=== PATIENT | female | born 1935 | race Caucasian/White ===

== ENCOUNTER 2020-05-16 16:21 | Inpatient (IN) | payer MEDICARE ==
[2020-05-16] MEDS: Amlodipine 5 MG TAB PO SCH (21:04)
[2020-05-16] MEDS: Carbidopa/Levodopa 25-100 mg Tablet PO SCH (21:04)
[2020-05-16] MEDS: Pramipexole Di-HCl 0.25 MG TAB PO SCH (21:05)
[2020-05-16] MEDS: Gabapentin 300 MG CAP PO SCH (21:05)
[2020-05-16] MEDS: Senokot S 8.6-50 MG TAB PO PRN (22:00)
[2020-05-16] MEDS: Naproxen 500 MG TAB PO PRN (22:00)
[2020-05-17] MEDS: Naproxen 500 MG TAB PO PRN ×2 (05:01→15:21)
[2020-05-17 05:32] LABS: #Basophils 0.1 thou/uL (0.0-0.2); #Eosinphils 0.1 thou/uL (0.0-0.7); #Monocytes 0.6 thou/uL (0.11-0.59); #Neutrophils 6.6 thou/uL (1.40-6.50); %Eosinophils 1.4 % (0.0-10.0); %Lymphocytes 11.7 % (21.0-51.0); %Monocytes 7.4 % (0.0-10.0); %Neutrophils 78.4 % (42.0-75.0); Hemoglobin 12.6 g/dL (12.0-16.0); Mean Corpuscular HGB CONC 33.6 g/dL (32.0-36.0); Mean Corpuscular Hemoglobin 30.1 pg (27.0-31.0); Mean Corpuscular Volume 89.7 fL (78.0-98.0); Mean Platelet Volume 5.5 fL (7.4-10.4); Platelet Count 426 thou/uL (130-400); RBC Distribution Width 11.9 % (11.5-14.5); Red Blood Cell (RBC) Count 4.19 mill/uL (4.20-5.40); White Blood Cell (WBC) Count 8.5 thou/uL (4.8-10.8)
[2020-05-17 05:37] LABS: ALT (SGPT) 9 U/L (8-55); AST (SGOT) 24 U/L (5-34); Albumin 3.6 g/dL (3.4-4.8); Alkaline Phosphatase 158 U/L (40-110); Anion Gap 13 mmol/L (10-20); BUN (Urea Nitrogen) 10 mg/dL (9.8-20.1); Calc. Creatinine Clearance 57 mL/min (70-130); Calcium 8.7 mg/dL (7.8-10.44); Carbon Dioxide 27 mmol/L (23-31); Chloride 96 mmol/L (98-107); Globulin 2.5 g/dL (2.4-3.5); Glucose 108 mg/dL (83-110); Potassium 3.4 mmol/L (3.5-5.1); Protein, Total 6.1 g/dL (5.8-8.1); Sodium 133 mmol/L (136-145)
[2020-05-17] MEDS: Pramipexole Di-HCl 0.25 MG TAB PO SCH ×2 (08:10→21:05)
[2020-05-17] MEDS: Cholecalciferol 1,000 UNITS (25 MCG) TAB PO SCH (08:10)
[2020-05-17] MEDS: Carbidopa/Levodopa 25-100 mg Tablet PO SCH ×4 (08:11→21:04)
[2020-05-17] MEDS: Gabapentin 300 MG CAP PO SCH ×2 (08:12→21:04)
[2020-05-17] MEDS: Atorvastatin Calcium 10 MG TAB PO SCH (08:14)
[2020-05-17] MEDS: Multivitamin W/ Minerals 1 TAB PO SCH (08:14)
[2020-05-17] MEDS ORDERED: Lactinex Tablet PO SCH (09:00)
[2020-05-17] MEDS ORDERED: Floranex Packet PO SCH (11:15)
[2020-05-17] MEDS: Floranex Packet PO SCH (12:20)
[2020-05-17] MEDS: Lidocaine 5% Patch TD SCH (12:22)
[2020-05-17] MEDS: Amlodipine 5 MG TAB PO SCH (21:04)
[2020-05-17] MEDS: Senokot S 8.6-50 MG TAB PO PRN (21:10)
[2020-05-18] MEDS: LIDOCAINE Patch Removal TOP SCH (00:21)
[2020-05-18] MEDS: Atorvastatin Calcium 10 MG TAB PO SCH (08:33)
[2020-05-18] MEDS: Floranex Packet PO SCH (08:33)
[2020-05-18] MEDS: Naproxen 500 MG TAB PO PRN ×3 (08:34→21:17)
[2020-05-18] MEDS: Senokot S 8.6-50 MG TAB PO PRN (08:34)
[2020-05-18] MEDS: Cholecalciferol 1,000 UNITS (25 MCG) TAB PO SCH (08:36)
[2020-05-18] MEDS: Gabapentin 300 MG CAP PO SCH ×2 (08:37→21:19)
[2020-05-18] MEDS: Enoxaparin Sodium 30 MG/0.3 ML SYRINGE SC SCH (08:37)
[2020-05-18] MEDS: Multivitamin W/ Minerals 1 TAB PO SCH (08:37)
[2020-05-18] MEDS: Carbidopa/Levodopa 25-100 mg Tablet PO SCH ×4 (08:39→21:20)
[2020-05-18] MEDS: Pramipexole Di-HCl 0.25 MG TAB PO SCH ×2 (08:40→21:17)
[2020-05-18] MEDS: Lidocaine 5% Patch TD SCH (12:45)
[2020-05-18] MEDS ORDERED: Bisacodyl 10 MG SUPP PR PRN (14:45)
[2020-05-18] MEDS: Amlodipine 5 MG TAB PO SCH (21:17)
[2020-05-19] MEDS: LIDOCAINE Patch Removal TOP SCH ×2 (00:36→21:33)
[2020-05-19] MEDS: Pramipexole Di-HCl 0.25 MG TAB PO SCH ×2 (09:10→21:31)
[2020-05-19] MEDS: Floranex Packet PO SCH (09:10)
[2020-05-19] MEDS: Multivitamin W/ Minerals 1 TAB PO SCH (09:11)
[2020-05-19] MEDS: Gabapentin 300 MG CAP PO SCH ×2 (09:11→21:32)
[2020-05-19] MEDS: Naproxen 500 MG TAB PO PRN ×2 (09:13→21:30)
[2020-05-19] MEDS: Carbidopa/Levodopa 25-100 mg Tablet PO SCH ×4 (09:14→21:32)
[2020-05-19] MEDS: Atorvastatin Calcium 10 MG TAB PO SCH (09:14)
[2020-05-19] MEDS: Cholecalciferol 1,000 UNITS (25 MCG) TAB PO SCH (09:15)
[2020-05-19] MEDS: Enoxaparin Sodium 30 MG/0.3 ML SYRINGE SC SCH (09:16)
[2020-05-19] MEDS: Lidocaine 5% Patch TD SCH (12:48)
[2020-05-19] MEDS: Amlodipine 5 MG TAB PO SCH (21:32)
[2020-05-20] MEDS: Naproxen 500 MG TAB PO PRN ×2 (05:43→21:58)
[2020-05-20 06:12] LABS: Anion Gap 14 mmol/L (10-20); BUN (Urea Nitrogen) 13 mg/dL (9.8-20.1); Calc. Creatinine Clearance 52 mL/min (70-130); Calcium 8.6 mg/dL (7.8-10.44); Carbon Dioxide 28 mmol/L (23-31); Chloride 93 mmol/L (98-107); Glucose 103 mg/dL (83-110); Sodium 131 mmol/L (136-145)
[2020-05-20] MEDS: Floranex Packet PO SCH (08:53)
[2020-05-20] MEDS: Enoxaparin Sodium 30 MG/0.3 ML SYRINGE SC SCH (08:54)
[2020-05-20] MEDS: Multivitamin W/ Minerals 1 TAB PO SCH (08:54)
[2020-05-20] MEDS: Carbidopa/Levodopa 25-100 mg Tablet PO SCH ×4 (08:54→21:58)
[2020-05-20] MEDS: Gabapentin 300 MG CAP PO SCH ×2 (08:55→21:57)
[2020-05-20] MEDS: Pramipexole Di-HCl 0.25 MG TAB PO SCH ×2 (08:55→21:58)
[2020-05-20] MEDS: Atorvastatin Calcium 10 MG TAB PO SCH (08:55)
[2020-05-20] MEDS: Cholecalciferol 1,000 UNITS (25 MCG) TAB PO SCH (08:55)
[2020-05-20] MEDS: Lidocaine 5% Patch TD SCH (08:56)
[2020-05-20] MEDS ORDERED: TYLENOL 650 MG PO PRN (19:35)
[2020-05-20] MEDS: Amlodipine 5 MG TAB PO SCH (21:58)
[2020-05-20] MEDS: LIDOCAINE Patch Removal TOP SCH (21:59)
[2020-05-21] MEDS ORDERED: Acetaminophen 325 MG TAB PO PRN (08:32)
[2020-05-21] MEDS: Floranex Packet PO SCH (09:04)
[2020-05-21] MEDS: Enoxaparin Sodium 30 MG/0.3 ML SYRINGE SC SCH (09:04)
[2020-05-21] MEDS: Multivitamin W/ Minerals 1 TAB PO SCH (09:05)
[2020-05-21] MEDS: Carbidopa/Levodopa 25-100 mg Tablet PO SCH ×4 (09:05→20:51)
[2020-05-21] MEDS: Gabapentin 300 MG CAP PO SCH ×2 (09:05→20:49)
[2020-05-21] MEDS: Pramipexole Di-HCl 0.25 MG TAB PO SCH ×2 (09:05→20:49)
[2020-05-21] MEDS: Cholecalciferol 1,000 UNITS (25 MCG) TAB PO SCH (09:06)
[2020-05-21] MEDS: Atorvastatin Calcium 10 MG TAB PO SCH (09:06)
[2020-05-21] MEDS: Lidocaine 5% Patch TD SCH (09:09)
[2020-05-21] MEDS: Acetaminophen 325 MG TAB PO PRN (15:09)
[2020-05-21] MEDS: Amlodipine 5 MG TAB PO SCH (20:51)
[2020-05-21] MEDS: LIDOCAINE Patch Removal TOP SCH (21:00)
[2020-05-22] MEDS: Naproxen 500 MG TAB PO PRN ×3 (00:02→23:26)
[2020-05-22 08:04] LABS: Anion Gap 13 mmol/L (10-20); BUN (Urea Nitrogen) 13 mg/dL (9.8-20.1); Calc. Creatinine Clearance 53 mL/min (70-130); Calcium 8.9 mg/dL (7.8-10.44); Carbon Dioxide 27 mmol/L (23-31); Chloride 96 mmol/L (98-107); Glucose 101 mg/dL (83-110); Potassium 4.3 mmol/L (3.5-5.1); Sodium 132 mmol/L (136-145)
[2020-05-22] MEDS: Floranex Packet PO SCH (08:51)
[2020-05-22] MEDS: Atorvastatin Calcium 10 MG TAB PO SCH (08:51)
[2020-05-22] MEDS: Carbidopa/Levodopa 25-100 mg Tablet PO SCH ×4 (08:52→20:34)
[2020-05-22] MEDS: Cholecalciferol 1,000 UNITS (25 MCG) TAB PO SCH (08:54)
[2020-05-22] MEDS: Enoxaparin Sodium 30 MG/0.3 ML SYRINGE SC SCH (08:54)
[2020-05-22] MEDS: Gabapentin 300 MG CAP PO SCH ×2 (08:54→20:34)
[2020-05-22] MEDS: Lidocaine 5% Patch TD SCH (08:55)
[2020-05-22] MEDS: Multivitamin W/ Minerals 1 TAB PO SCH (08:56)
[2020-05-22] MEDS: Pramipexole Di-HCl 0.25 MG TAB PO SCH ×2 (08:56→20:34)
[2020-05-22] MEDS: Acetaminophen 325 MG TAB PO PRN (08:58)
[2020-05-22] MEDS: LIDOCAINE Patch Removal TOP SCH (20:35)
[2020-05-22] MEDS: Amlodipine 5 MG TAB PO SCH (20:35)
[2020-05-23] MEDS: Acetaminophen 325 MG TAB PO PRN ×2 (06:12→17:17)
[2020-05-23] MEDS: Atorvastatin Calcium 10 MG TAB PO SCH (09:15)
[2020-05-23] MEDS: Carbidopa/Levodopa 25-100 mg Tablet PO SCH ×4 (09:15→22:18)
[2020-05-23] MEDS: Floranex Packet PO SCH (09:15)
[2020-05-23] MEDS: Enoxaparin Sodium 30 MG/0.3 ML SYRINGE SC SCH (09:16)
[2020-05-23] MEDS: Cholecalciferol 1,000 UNITS (25 MCG) TAB PO SCH (09:16)
[2020-05-23] MEDS: Gabapentin 300 MG CAP PO SCH ×2 (09:16→22:18)
[2020-05-23] MEDS: Pramipexole Di-HCl 0.25 MG TAB PO SCH ×2 (09:18→22:17)
[2020-05-23] MEDS: Naproxen 500 MG TAB PO PRN (09:18)
[2020-05-23] MEDS: Lidocaine 5% Patch TD SCH (09:18)
[2020-05-23] MEDS: Multivitamin W/ Minerals 1 TAB PO SCH (09:18)
[2020-05-23] MEDS: Amlodipine 5 MG TAB PO SCH (22:17)
[2020-05-23] MEDS: LIDOCAINE Patch Removal TOP SCH (22:19)
[2020-05-24] MEDS: Lidocaine 5% Patch TD SCH (08:50)
[2020-05-24] MEDS: Enoxaparin Sodium 30 MG/0.3 ML SYRINGE SC SCH (08:50)
[2020-05-24] MEDS: Atorvastatin Calcium 10 MG TAB PO SCH (08:51)
[2020-05-24] MEDS: Pramipexole Di-HCl 0.25 MG TAB PO SCH ×2 (08:51→20:24)
[2020-05-24] MEDS: Cholecalciferol 1,000 UNITS (25 MCG) TAB PO SCH (08:51)
[2020-05-24] MEDS: Floranex Packet PO SCH (08:51)
[2020-05-24] MEDS: Carbidopa/Levodopa 25-100 mg Tablet PO SCH ×4 (08:52→20:24)
[2020-05-24] MEDS: Gabapentin 300 MG CAP PO SCH ×2 (08:53→20:22)
[2020-05-24] MEDS: Naproxen 500 MG TAB PO PRN (08:54)
[2020-05-24] MEDS: Multivitamin W/ Minerals 1 TAB PO SCH (08:54)
[2020-05-24] MEDS: Amlodipine 5 MG TAB PO SCH (20:24)
[2020-05-24] MEDS: LIDOCAINE Patch Removal TOP SCH (20:25)
[2020-05-24] MEDS: Acetaminophen 325 MG TAB PO PRN (20:26)
[2020-05-25] MEDS: Floranex Packet PO SCH (08:53)
[2020-05-25] MEDS: Multivitamin W/ Minerals 1 TAB PO SCH (08:53)
[2020-05-25] MEDS: Cholecalciferol 1,000 UNITS (25 MCG) TAB PO SCH (08:55)
[2020-05-25] MEDS: Pramipexole Di-HCl 0.25 MG TAB PO SCH ×2 (08:56→21:28)
[2020-05-25] MEDS: Carbidopa/Levodopa 25-100 mg Tablet PO SCH ×4 (08:57→21:28)
[2020-05-25] MEDS: Atorvastatin Calcium 10 MG TAB PO SCH (08:58)
[2020-05-25] MEDS: Gabapentin 300 MG CAP PO SCH ×2 (08:58→21:26)
[2020-05-25] MEDS: Lidocaine 5% Patch TD SCH (08:59)
[2020-05-25] MEDS: Enoxaparin Sodium 30 MG/0.3 ML SYRINGE SC SCH (09:02)
[2020-05-25] MEDS: Amlodipine 5 MG TAB PO SCH (21:29)
[2020-05-25] MEDS: LIDOCAINE Patch Removal TOP SCH (21:30)
[2020-05-26] MEDS: Acetaminophen 325 MG TAB PO PRN ×2 (03:01→21:56)
[2020-05-26 05:21] LABS: #Basophils 0.1 thou/uL (0.0-0.2); #Eosinphils 0.1 thou/uL (0.0-0.7); #Lymphocytes 0.9 thou/uL (1.20-3.40); #Monocytes 0.4 thou/uL (0.11-0.59); #Neutrophils 3.1 thou/uL (1.40-6.50); %Basophils 2.5 % (0.0-1.0); %Eosinophils 2.1 % (0.0-10.0); %Lymphocytes 19.2 % (21.0-51.0); %Monocytes 8.4 % (0.0-10.0); %Neutrophils 67.8 % (42.0-75.0); Hemoglobin 12.5 g/dL (12.0-16.0); Mean Corpuscular HGB CONC 32.9 g/dL (32.0-36.0); Mean Corpuscular Hemoglobin 30.5 pg (27.0-31.0); Mean Corpuscular Volume 92.9 fL (78.0-98.0); Mean Platelet Volume 5.7 fL (7.4-10.4); Platelet Count 300 thou/uL (130-400); RBC Distribution Width 12.4 % (11.5-14.5); Red Blood Cell (RBC) Count 4.08 mill/uL (4.20-5.40); White Blood Cell (WBC) Count 4.5 thou/uL (4.8-10.8)
[2020-05-26 05:32] LABS: Anion Gap 13 mmol/L (10-20); BUN (Urea Nitrogen) 14 mg/dL (9.8-20.1); Calc. Creatinine Clearance 52 mL/min (70-130); Carbon Dioxide 29 mmol/L (23-31); Chloride 94 mmol/L (98-107); Potassium 3.7 mmol/L (3.5-5.1); Sodium 132 mmol/L (136-145)
[2020-05-26 05:33] LABS: Calcium 8.6 mg/dL (7.8-10.44); Glucose 102 mg/dL (83-110)
[2020-05-26 06:44] LABS: Bilirubin Negative (Negative); Blood, Urine Negative (Negative); Clarity Clear (Clear); Glucose, Urine (Dipstick) Negative (Negative); Ketone, Urine Negative (Negative); Leukocyte Negative (Negative); Nitrite Negative (Negative); Protein, Urine (Dipstick) Negative (Neg-Trace); Urobilinogen 0.2 mg/dL (Less than 2); pH, Urine 6.5 (5.0-9.0)
[2020-05-26 06:45] LABS: Urine Culture Reflex No No
[2020-05-26 06:50] LABS: Bacteria/HPF None Seen HPF (None Seen); RBC/HPF None Seen HPF (0-3); Squamous Epithelial 0-3 HPF (0-3); WBC/HPF 0-3 HPF (0-3)
[2020-05-26] MEDS: Enoxaparin Sodium 30 MG/0.3 ML SYRINGE SC SCH (09:29)
[2020-05-26] MEDS: Gabapentin 300 MG CAP PO SCH ×2 (09:30→21:56)
[2020-05-26] MEDS: Pramipexole Di-HCl 0.25 MG TAB PO SCH ×2 (09:30→21:55)
[2020-05-26] MEDS: Multivitamin W/ Minerals 1 TAB PO SCH (09:30)
[2020-05-26] MEDS: Cholecalciferol 1,000 UNITS (25 MCG) TAB PO SCH (09:32)
[2020-05-26] MEDS: Carbidopa/Levodopa 25-100 mg Tablet PO SCH ×4 (09:33→21:55)
[2020-05-26] MEDS: Atorvastatin Calcium 10 MG TAB PO SCH (09:33)
[2020-05-26] MEDS: Lidocaine 5% Patch TD SCH (09:34)
[2020-05-26] MEDS: Floranex Packet PO SCH (09:36)
[2020-05-26] MEDS: Amlodipine 5 MG TAB PO SCH (21:55)
[2020-05-26] MEDS: LIDOCAINE Patch Removal TOP SCH (21:59)
[2020-05-27] MEDS: Naproxen 500 MG TAB PO PRN ×3 (04:17→20:30)
[2020-05-27] MEDS: Lidocaine 5% Patch TD SCH (07:38)
[2020-05-27] MEDS: Floranex Packet PO SCH (07:39)
[2020-05-27] MEDS: Gabapentin 300 MG CAP PO SCH ×2 (07:39→20:28)
[2020-05-27] MEDS: Pramipexole Di-HCl 0.25 MG TAB PO SCH ×2 (07:40→20:29)
[2020-05-27] MEDS: Enoxaparin Sodium 30 MG/0.3 ML SYRINGE SC SCH (07:46)
[2020-05-27] MEDS: Carbidopa/Levodopa 25-100 mg Tablet PO SCH ×4 (09:08→20:28)
[2020-05-27] MEDS: Multivitamin W/ Minerals 1 TAB PO SCH (09:09)
[2020-05-27] MEDS: Atorvastatin Calcium 10 MG TAB PO SCH (09:09)
[2020-05-27] MEDS ORDERED: ALPRAZolam 0.25 MG TAB PO SCH (09:10)
[2020-05-27] MEDS: Cholecalciferol 1,000 UNITS (25 MCG) TAB PO SCH (09:11)
[2020-05-27] MEDS: Amlodipine 5 MG TAB PO SCH (20:30)
[2020-05-27] MEDS: Acetaminophen 325 MG TAB PO PRN (20:31)
[2020-05-27] MEDS: LIDOCAINE Patch Removal TOP SCH (20:48)
[2020-05-28] MEDS: Naproxen 500 MG TAB PO PRN (04:54)
[2020-05-28] MEDS: Acetaminophen 325 MG TAB PO PRN (04:55)
[2020-05-28] MEDS: Floranex Packet PO SCH (09:25)
[2020-05-28] MEDS: Atorvastatin Calcium 10 MG TAB PO SCH (09:26)
[2020-05-28] MEDS: Multivitamin W/ Minerals 1 TAB PO SCH ×2 (09:26→09:38)
[2020-05-28] MEDS: Lidocaine 5% Patch TD SCH ×2 (09:26→13:21)
[2020-05-28] MEDS: Gabapentin 300 MG CAP PO SCH ×2 (09:27→20:34)
[2020-05-28] MEDS: Carbidopa/Levodopa 25-100 mg Tablet PO SCH ×4 (09:28→20:34)
[2020-05-28] MEDS: Cholecalciferol 1,000 UNITS (25 MCG) TAB PO SCH (09:29)
[2020-05-28] MEDS: Enoxaparin Sodium 30 MG/0.3 ML SYRINGE SC SCH (09:29)
[2020-05-28] MEDS: Pramipexole Di-HCl 0.25 MG TAB PO SCH ×2 (09:29→20:33)
[2020-05-28] MEDS: Amlodipine 5 MG TAB PO SCH (20:31)
[2020-05-28] MEDS: LIDOCAINE Patch Removal TOP SCH (20:36)
[2020-05-29] MEDS: Lidocaine 5% Patch TD SCH (09:53)
[2020-05-29] MEDS: Multivitamin W/ Minerals 1 TAB PO SCH (09:57)
[2020-05-29] MEDS: Carbidopa/Levodopa 25-100 mg Tablet PO SCH ×4 (09:58→21:05)
[2020-05-29] MEDS: Gabapentin 300 MG CAP PO SCH ×2 (09:58→21:01)
[2020-05-29] MEDS: Cholecalciferol 1,000 UNITS (25 MCG) TAB PO SCH (09:58)
[2020-05-29] MEDS: Pramipexole Di-HCl 0.25 MG TAB PO SCH ×2 (09:58→21:04)
[2020-05-29] MEDS: Enoxaparin Sodium 30 MG/0.3 ML SYRINGE SC SCH (10:01)
[2020-05-29] MEDS: Floranex Packet PO SCH ×2 (10:01→10:05)
[2020-05-29] MEDS: Atorvastatin Calcium 10 MG TAB PO SCH (10:01)
[2020-05-29] MEDS: Acetaminophen 325 MG TAB PO PRN (18:24)
[2020-05-29] MEDS: Amlodipine 5 MG TAB PO SCH (21:00)
[2020-05-29] MEDS: LIDOCAINE Patch Removal TOP SCH (21:18)
[2020-05-30] MEDS: Floranex Packet PO SCH (08:25)
[2020-05-30] MEDS: Lidocaine 5% Patch TD SCH (08:25)
[2020-05-30] MEDS: Acetaminophen 325 MG TAB PO PRN ×2 (08:26→20:59)
[2020-05-30] MEDS: Pramipexole Di-HCl 0.25 MG TAB PO SCH ×2 (08:28→20:58)
[2020-05-30] MEDS: Multivitamin W/ Minerals 1 TAB PO SCH (08:28)
[2020-05-30] MEDS: Carbidopa/Levodopa 25-100 mg Tablet PO SCH ×4 (08:29→20:59)
[2020-05-30] MEDS: Enoxaparin Sodium 30 MG/0.3 ML SYRINGE SC SCH (08:30)
[2020-05-30] MEDS: Atorvastatin Calcium 10 MG TAB PO SCH (08:30)
[2020-05-30] MEDS: Cholecalciferol 1,000 UNITS (25 MCG) TAB PO SCH (08:30)
[2020-05-30] MEDS: Gabapentin 300 MG CAP PO SCH ×2 (08:30→20:57)
[2020-05-30] MEDS: Naproxen 500 MG TAB PO PRN (14:47)
[2020-05-30] MEDS: Amlodipine 5 MG TAB PO SCH (20:59)
[2020-05-30] MEDS: LIDOCAINE Patch Removal TOP SCH (21:00)
[2020-05-31] MEDS: Enoxaparin Sodium 30 MG/0.3 ML SYRINGE SC SCH (08:17)
[2020-05-31] MEDS: Floranex Packet PO SCH (08:17)
[2020-05-31] MEDS: Gabapentin 300 MG CAP PO SCH ×2 (08:17→20:24)
[2020-05-31] MEDS: Lidocaine 5% Patch TD SCH (08:17)
[2020-05-31] MEDS: Pramipexole Di-HCl 0.25 MG TAB PO SCH ×2 (08:18→20:24)
[2020-05-31] MEDS: Atorvastatin Calcium 10 MG TAB PO SCH (08:19)
[2020-05-31] MEDS: Carbidopa/Levodopa 25-100 mg Tablet PO SCH ×4 (08:19→20:22)
[2020-05-31] MEDS: Multivitamin W/ Minerals 1 TAB PO SCH (08:20)
[2020-05-31] MEDS: Cholecalciferol 1,000 UNITS (25 MCG) TAB PO SCH (08:20)
[2020-05-31] MEDS: Acetaminophen 325 MG TAB PO PRN (20:22)
[2020-05-31] MEDS: Amlodipine 5 MG TAB PO SCH (20:23)
[2020-05-31] MEDS: Melatonin 3 MG TAB PO SCH (20:23)
[2020-05-31] MEDS: LIDOCAINE Patch Removal TOP SCH (20:24)
[2020-06-01] MEDS: Naproxen 500 MG TAB PO PRN (05:38)
[2020-06-01] MEDS: Amlodipine 5 MG TAB PO SCH ×2 (05:38→20:53)
[2020-06-01] MEDS: Floranex Packet PO SCH (08:28)
[2020-06-01] MEDS: Atorvastatin Calcium 10 MG TAB PO SCH (08:29)
[2020-06-01] MEDS: Carbidopa/Levodopa 25-100 mg Tablet PO SCH ×4 (08:29→20:54)
[2020-06-01] MEDS: Cholecalciferol 1,000 UNITS (25 MCG) TAB PO SCH (08:30)
[2020-06-01] MEDS: Enoxaparin Sodium 30 MG/0.3 ML SYRINGE SC SCH (08:30)
[2020-06-01] MEDS: Gabapentin 300 MG CAP PO SCH ×2 (08:30→20:53)
[2020-06-01] MEDS: Lidocaine 5% Patch TD SCH (08:32)
[2020-06-01] MEDS: Pramipexole Di-HCl 0.25 MG TAB PO SCH ×2 (08:32→20:52)
[2020-06-01] MEDS: Multivitamin W/ Minerals 1 TAB PO SCH (08:32)
[2020-06-01] MEDS ORDERED: Amlodipine 5 MG TAB PO SCH (09:00)
[2020-06-01] MEDS: Melatonin 3 MG TAB PO SCH (20:52)
[2020-06-01] MEDS: Acetaminophen 325 MG TAB PO PRN (20:54)
[2020-06-01] MEDS: LIDOCAINE Patch Removal TOP SCH (20:54)
[2020-06-02] MEDS: Amlodipine 5 MG TAB PO SCH ×2 (05:21→21:15)
[2020-06-02] MEDS: Acetaminophen 325 MG TAB PO PRN ×2 (05:22→21:12)
[2020-06-02] MEDS: Floranex Packet PO SCH (08:29)
[2020-06-02] MEDS: Carbidopa/Levodopa 25-100 mg Tablet PO SCH ×4 (08:29→21:10)
[2020-06-02] MEDS: Atorvastatin Calcium 10 MG TAB PO SCH (08:29)
[2020-06-02] MEDS: Enoxaparin Sodium 30 MG/0.3 ML SYRINGE SC SCH (08:30)
[2020-06-02] MEDS: Gabapentin 300 MG CAP PO SCH ×2 (08:30→21:14)
[2020-06-02] MEDS: Cholecalciferol 1,000 UNITS (25 MCG) TAB PO SCH (08:30)
[2020-06-02] MEDS: Lidocaine 5% Patch TD SCH (08:31)
[2020-06-02] MEDS: Multivitamin W/ Minerals 1 TAB PO SCH (08:31)
[2020-06-02] MEDS: Pramipexole Di-HCl 0.25 MG TAB PO SCH ×2 (08:31→21:13)
[2020-06-02] MEDS: Naproxen 500 MG TAB PO PRN (08:31)
[2020-06-02] MEDS: Melatonin 3 MG TAB PO SCH (21:41)
[2020-06-02] MEDS: LIDOCAINE Patch Removal TOP SCH (21:42)
[2020-06-03] MEDS: Amlodipine 5 MG TAB PO SCH ×2 (06:01→20:02)
[2020-06-03] MEDS: Naproxen 500 MG TAB PO PRN ×2 (08:29→20:00)
[2020-06-03] MEDS: Carbidopa/Levodopa 25-100 mg Tablet PO SCH ×4 (08:30→20:02)
[2020-06-03] MEDS: Pramipexole Di-HCl 0.25 MG TAB PO SCH ×2 (08:31→20:01)
[2020-06-03] MEDS: Multivitamin W/ Minerals 1 TAB PO SCH (08:31)
[2020-06-03] MEDS: Cholecalciferol 1,000 UNITS (25 MCG) TAB PO SCH (08:31)
[2020-06-03] MEDS: Gabapentin 300 MG CAP PO SCH ×2 (08:31→20:01)
[2020-06-03] MEDS: Atorvastatin Calcium 10 MG TAB PO SCH (08:31)
[2020-06-03] MEDS: Lidocaine 5% Patch TD SCH (08:32)
[2020-06-03] MEDS: Enoxaparin Sodium 30 MG/0.3 ML SYRINGE SC SCH (08:32)
[2020-06-03] MEDS: Floranex Packet PO SCH ×2 (08:33→08:48)
[2020-06-03] MEDS: Acetaminophen 325 MG TAB PO PRN (13:27)
[2020-06-03] MEDS: Melatonin 3 MG TAB PO SCH (20:02)
[2020-06-03] MEDS: LIDOCAINE Patch Removal TOP SCH (22:13)
[2020-06-03] MEDS: Senokot S 8.6-50 MG TAB PO PRN (22:21)
[2020-06-04] MEDS: Amlodipine 5 MG TAB PO SCH ×2 (05:41→20:16)
[2020-06-04 06:57] LABS: #Basophils 0.1 thou/uL (0.0-0.2); #Eosinphils 0.1 thou/uL (0.0-0.7); #Lymphocytes 0.7 thou/uL (1.20-3.40); #Monocytes 0.3 thou/uL (0.11-0.59); #Neutrophils 2.5 thou/uL (1.40-6.50); %Basophils 1.7 % (0.0-1.0); %Eosinophils 3.1 % (0.0-10.0); %Lymphocytes 18.8 % (21.0-51.0); %Monocytes 8.6 % (0.0-10.0); %Neutrophils 67.7 % (42.0-75.0); Hemoglobin 12.4 g/dL (12.0-16.0); Mean Corpuscular HGB CONC 32.5 g/dL (32.0-36.0); Mean Corpuscular Hemoglobin 30.2 pg (27.0-31.0); Mean Corpuscular Volume 92.7 fL (78.0-98.0); Mean Platelet Volume 5.9 fL (7.4-10.4); Platelet Count 269 thou/uL (130-400); RBC Distribution Width 12.4 % (11.5-14.5); Red Blood Cell (RBC) Count 4.12 mill/uL (4.20-5.40); White Blood Cell (WBC) Count 3.6 thou/uL (4.8-10.8)
[2020-06-04 07:11] LABS: ALT (SGPT) 15 U/L (8-55); AST (SGOT) 21 U/L (5-34); Albumin 3.6 g/dL (3.4-4.8); Alkaline Phosphatase 141 U/L (40-110); Anion Gap 13 mmol/L (10-20); BUN (Urea Nitrogen) 13 mg/dL (9.8-20.1); Calc. Creatinine Clearance 50 mL/min (70-130); Calcium 8.7 mg/dL (7.8-10.44); Carbon Dioxide 28 mmol/L (23-31); Globulin 2.3 g/dL (2.4-3.5); Potassium 3.9 mmol/L (3.5-5.1); Protein, Total 5.9 g/dL (5.8-8.1)
[2020-06-04 07:37] LABS: Chloride 98 mmol/L (98-107); Glucose 105 mg/dL (83-110); Sodium 135 mmol/L (136-145)
[2020-06-04] MEDS: Naproxen 500 MG TAB PO PRN (08:24)
[2020-06-04] MEDS: Enoxaparin Sodium 30 MG/0.3 ML SYRINGE SC SCH (08:34)
[2020-06-04] MEDS: Carbidopa/Levodopa 25-100 mg Tablet PO SCH ×4 (08:35→20:16)
[2020-06-04] MEDS: Multivitamin W/ Minerals 1 TAB PO SCH (08:35)
[2020-06-04] MEDS: Lidocaine 5% Patch TD SCH (08:35)
[2020-06-04] MEDS: Cholecalciferol 1,000 UNITS (25 MCG) TAB PO SCH (08:36)
[2020-06-04] MEDS: Pramipexole Di-HCl 0.25 MG TAB PO SCH ×2 (08:36→20:15)
[2020-06-04] MEDS: Atorvastatin Calcium 10 MG TAB PO SCH (08:36)
[2020-06-04] MEDS: Gabapentin 300 MG CAP PO SCH ×2 (08:37→20:15)
[2020-06-04] MEDS: Floranex Packet PO SCH (08:42)
[2020-06-04] MEDS: Acetaminophen 325 MG TAB PO PRN (11:53)
[2020-06-04] MEDS ORDERED: Naproxen 500 MG TAB PO SCH (19:00)
[2020-06-04] MEDS: LIDOCAINE Patch Removal TOP SCH (20:16)
[2020-06-04] MEDS: Mirtazapine 15 MG TAB PO SCH (20:16)
[2020-06-05] MEDS: Amlodipine 5 MG TAB PO SCH ×2 (05:53→20:37)
[2020-06-05] MEDS: Acetaminophen 325 MG TAB PO PRN ×2 (05:54→20:35)
[2020-06-05] MEDS: Naproxen 500 MG TAB PO SCH ×2 (08:45→16:42)
[2020-06-05] MEDS: Cholecalciferol 1,000 UNITS (25 MCG) TAB PO SCH (08:46)
[2020-06-05] MEDS: Atorvastatin Calcium 10 MG TAB PO SCH (08:46)
[2020-06-05] MEDS: Carbidopa/Levodopa 25-100 mg Tablet PO SCH ×5 (08:46→20:36)
[2020-06-05] MEDS: Floranex Packet PO SCH (08:46)
[2020-06-05] MEDS: Gabapentin 300 MG CAP PO SCH ×2 (08:47→20:36)
[2020-06-05] MEDS: Multivitamin W/ Minerals 1 TAB PO SCH (08:47)
[2020-06-05] MEDS: Lidocaine 5% Patch TD SCH (08:47)
[2020-06-05] MEDS: Enoxaparin Sodium 30 MG/0.3 ML SYRINGE SC SCH (08:47)
[2020-06-05] MEDS: Pramipexole Di-HCl 0.25 MG TAB PO SCH ×2 (08:48→20:36)
[2020-06-05] MEDS: Mirtazapine 15 MG TAB PO SCH (20:36)
[2020-06-05] MEDS: LIDOCAINE Patch Removal TOP SCH (20:39)
[2020-06-06] MEDS: Acetaminophen 325 MG TAB PO PRN (05:15)
[2020-06-06] MEDS: Amlodipine 5 MG TAB PO SCH ×2 (05:16→21:10)
[2020-06-06] MEDS: Naproxen 500 MG TAB PO SCH ×2 (08:30→16:38)
[2020-06-06] MEDS: Floranex Packet PO SCH (08:31)
[2020-06-06] MEDS: Cholecalciferol 1,000 UNITS (25 MCG) TAB PO SCH (08:31)
[2020-06-06] MEDS: Carbidopa/Levodopa 25-100 mg Tablet PO SCH ×4 (08:31→21:10)
[2020-06-06] MEDS: Atorvastatin Calcium 10 MG TAB PO SCH (08:31)
[2020-06-06] MEDS: Enoxaparin Sodium 30 MG/0.3 ML SYRINGE SC SCH (08:31)
[2020-06-06] MEDS: Pramipexole Di-HCl 0.25 MG TAB PO SCH ×2 (08:32→21:10)
[2020-06-06] MEDS: Lidocaine 5% Patch TD SCH (08:32)
[2020-06-06] MEDS: Multivitamin W/ Minerals 1 TAB PO SCH (08:32)
[2020-06-06] MEDS: Gabapentin 300 MG CAP PO SCH ×2 (08:32→21:09)
[2020-06-06] MEDS: Mirtazapine 15 MG TAB PO SCH (21:10)
[2020-06-06] MEDS: Senokot S 8.6-50 MG TAB PO PRN (21:11)
[2020-06-06] MEDS: LIDOCAINE Patch Removal TOP SCH (21:16)
[2020-06-07] MEDS: Amlodipine 5 MG TAB PO SCH ×2 (05:27→21:21)
[2020-06-07] MEDS: Enoxaparin Sodium 30 MG/0.3 ML SYRINGE SC SCH (08:27)
[2020-06-07] MEDS: Cholecalciferol 1,000 UNITS (25 MCG) TAB PO SCH (08:27)
[2020-06-07] MEDS: Multivitamin W/ Minerals 1 TAB PO SCH (08:27)
[2020-06-07] MEDS: Carbidopa/Levodopa 25-100 mg Tablet PO SCH ×4 (08:28→21:20)
[2020-06-07] MEDS: Gabapentin 300 MG CAP PO SCH ×2 (08:28→21:19)
[2020-06-07] MEDS: Pramipexole Di-HCl 0.25 MG TAB PO SCH ×2 (08:29→21:20)
[2020-06-07] MEDS: Naproxen 500 MG TAB PO SCH ×2 (08:30→16:19)
[2020-06-07] MEDS: Atorvastatin Calcium 10 MG TAB PO SCH (08:30)
[2020-06-07] MEDS: Lidocaine 5% Patch TD SCH (08:30)
[2020-06-07] MEDS: Floranex Packet PO SCH (08:33)
[2020-06-07] MEDS: Mirtazapine 15 MG TAB PO SCH (21:20)
[2020-06-07] MEDS: LIDOCAINE Patch Removal TOP SCH (21:22)
[2020-06-08] MEDS: Amlodipine 5 MG TAB PO SCH ×2 (05:31→20:30)
[2020-06-08] MEDS: Pramipexole Di-HCl 0.25 MG TAB PO SCH ×2 (09:12→20:29)
[2020-06-08] MEDS: Gabapentin 300 MG CAP PO SCH ×2 (09:13→20:29)
[2020-06-08] MEDS: Naproxen 500 MG TAB PO SCH ×2 (09:13→17:46)
[2020-06-08] MEDS: Carbidopa/Levodopa 25-100 mg Tablet PO SCH ×4 (09:13→20:29)
[2020-06-08] MEDS: Atorvastatin Calcium 10 MG TAB PO SCH (09:14)
[2020-06-08] MEDS: Lidocaine 5% Patch TD SCH (09:14)
[2020-06-08] MEDS: Multivitamin W/ Minerals 1 TAB PO SCH (09:14)
[2020-06-08] MEDS: Cholecalciferol 1,000 UNITS (25 MCG) TAB PO SCH (09:14)
[2020-06-08] MEDS: Floranex Packet PO SCH (09:14)
[2020-06-08] MEDS: Enoxaparin Sodium 30 MG/0.3 ML SYRINGE SC SCH (09:14)
[2020-06-08] MEDS: Acetaminophen 325 MG TAB PO PRN (11:13)
[2020-06-08] MEDS: Mirtazapine 15 MG TAB PO SCH (20:29)
[2020-06-08] MEDS: LIDOCAINE Patch Removal TOP SCH (20:31)
[2020-06-09] MEDS: Amlodipine 5 MG TAB PO SCH ×2 (06:12→20:13)
[2020-06-09] MEDS ORDERED: ALPRAZolam 0.5 MG TAB PO SCH (07:15)
[2020-06-09] MEDS ORDERED: ALPRAZolam 0.25 MG TAB PO SCH (07:30)
[2020-06-09] MEDS: Naproxen 500 MG TAB PO SCH ×2 (07:43→17:34)
[2020-06-09] MEDS: Lidocaine 5% Patch TD SCH (08:05)
[2020-06-09] MEDS: Enoxaparin Sodium 30 MG/0.3 ML SYRINGE SC SCH (08:05)
[2020-06-09] MEDS: Pramipexole Di-HCl 0.25 MG TAB PO SCH ×2 (08:39→20:14)
[2020-06-09] MEDS: Atorvastatin Calcium 10 MG TAB PO SCH (08:40)
[2020-06-09] MEDS: Gabapentin 300 MG CAP PO SCH ×2 (08:40→20:14)
[2020-06-09] MEDS: Floranex Packet PO SCH (08:40)
[2020-06-09] MEDS: Carbidopa/Levodopa 25-100 mg Tablet PO SCH ×4 (08:41→20:15)
[2020-06-09] MEDS: Multivitamin W/ Minerals 1 TAB PO SCH (08:41)
[2020-06-09] MEDS: Cholecalciferol 1,000 UNITS (25 MCG) TAB PO SCH (08:41)
[2020-06-09 11:08] LABS: #Basophils 0.1 thou/uL (0.0-0.2); #Lymphocytes 0.8 thou/uL (1.20-3.40); #Monocytes 0.4 thou/uL (0.11-0.59); #Neutrophils 4.3 thou/uL (1.40-6.50); %Eosinophils 0.9 % (0.0-10.0); %Lymphocytes 14.5 % (21.0-51.0); %Monocytes 6.6 % (0.0-10.0); Hemoglobin 11.7 g/dL (12.0-16.0); Mean Corpuscular HGB CONC 31.5 g/dL (32.0-36.0); Mean Corpuscular Hemoglobin 30.7 pg (27.0-31.0); Mean Corpuscular Volume 97.5 fL (78.0-98.0); Mean Platelet Volume 5.8 fL (7.4-10.4); Platelet Count 269 thou/uL (130-400); RBC Distribution Width 13.4 % (11.5-14.5); Red Blood Cell (RBC) Count 3.83 mill/uL (4.20-5.40); White Blood Cell (WBC) Count 5.5 thou/uL (4.8-10.8)
[2020-06-09 11:22] LABS: ALT (SGPT) 7 U/L (8-55); AST (SGOT) 18 U/L (5-34); Albumin 3.5 g/dL (3.4-4.8); Alkaline Phosphatase 134 U/L (40-110); Anion Gap 12 mmol/L (10-20); BUN (Urea Nitrogen) 18 mg/dL (9.8-20.1); Bilirubin, Total 0.7 mg/dL (0.2-1.2); Calc. Creatinine Clearance 49 mL/min (70-130); Calcium 8.8 mg/dL (7.8-10.44); Carbon Dioxide 27 mmol/L (23-31); Chloride 100 mmol/L (98-107); Globulin 2.2 g/dL (2.4-3.5); Glucose 94 mg/dL (83-110); Potassium 4.1 mmol/L (3.5-5.1); Protein, Total 5.7 g/dL (5.8-8.1); Sodium 135 mmol/L (136-145)
[2020-06-09 13:50] LABS: Bilirubin Negative (Negative); Blood, Urine Negative (Negative); Clarity Clear (Clear); Glucose, Urine (Dipstick) Negative (Negative); Ketone, Urine Negative (Negative); Leukocyte Negative (Negative); Nitrite Negative (Negative); Protein, Urine (Dipstick) Negative (Neg-Trace); Specific Gravity, Urine 1.015 (1.005-1.030); Urobilinogen 0.2 mg/dL (Less than 2)
[2020-06-09 14:08] LABS: Urine Culture Reflex No No
[2020-06-09 16:26] LABS: Bacteria/HPF None Seen HPF (None Seen); RBC/HPF 0-3 HPF (0-3); Squamous Epithelial 0-3 HPF (0-3); WBC/HPF None Seen HPF (0-3)
[2020-06-09] MEDS: LIDOCAINE Patch Removal TOP SCH (20:15)
[2020-06-09] MEDS: Mirtazapine 15 MG TAB PO SCH (20:15)
[2020-06-10] MEDS: Amlodipine 5 MG TAB PO SCH ×2 (05:59→20:15)
[2020-06-10] MEDS: Lidocaine 5% Patch TD SCH (08:57)
[2020-06-10] MEDS: Floranex Packet PO SCH (08:59)
[2020-06-10] MEDS: Enoxaparin Sodium 30 MG/0.3 ML SYRINGE SC SCH (09:00)
[2020-06-10] MEDS: Carbidopa/Levodopa 25-100 mg Tablet PO SCH ×4 (09:01→20:16)
[2020-06-10] MEDS: Cholecalciferol 1,000 UNITS (25 MCG) TAB PO SCH (09:14)
[2020-06-10] MEDS: Multivitamin W/ Minerals 1 TAB PO SCH (09:14)
[2020-06-10] MEDS: Naproxen 500 MG TAB PO SCH ×2 (09:15→16:47)
[2020-06-10] MEDS: Pramipexole Di-HCl 0.25 MG TAB PO SCH ×2 (09:17→20:15)
[2020-06-10] MEDS: Atorvastatin Calcium 10 MG TAB PO SCH (09:17)
[2020-06-10] MEDS: Gabapentin 300 MG CAP PO SCH ×2 (09:18→20:16)
[2020-06-10] MEDS: Mirtazapine 15 MG TAB PO SCH (20:15)
[2020-06-10] MEDS: LIDOCAINE Patch Removal TOP SCH (20:19)
[2020-06-11] MEDS: Amlodipine 5 MG TAB PO SCH ×2 (06:00→20:48)
[2020-06-11] MEDS: Lidocaine 5% Patch TD SCH (08:13)
[2020-06-11] MEDS: Pramipexole Di-HCl 0.25 MG TAB PO SCH ×2 (08:13→20:48)
[2020-06-11] MEDS: Floranex Packet PO SCH (08:13)
[2020-06-11] MEDS: Multivitamin W/ Minerals 1 TAB PO SCH (08:14)
[2020-06-11] MEDS: Naproxen 500 MG TAB PO SCH ×2 (08:14→16:22)
[2020-06-11] MEDS: Cholecalciferol 1,000 UNITS (25 MCG) TAB PO SCH (08:14)
[2020-06-11] MEDS: Carbidopa/Levodopa 25-100 mg Tablet PO SCH ×4 (08:15→20:50)
[2020-06-11] MEDS: Gabapentin 300 MG CAP PO SCH ×2 (08:15→20:47)
[2020-06-11] MEDS: Enoxaparin Sodium 30 MG/0.3 ML SYRINGE SC SCH (08:16)
[2020-06-11] MEDS: Atorvastatin Calcium 10 MG TAB PO SCH (08:16)
[2020-06-11] MEDS: Mirtazapine 15 MG TAB PO SCH (20:51)
[2020-06-11] MEDS: LIDOCAINE Patch Removal TOP SCH (20:51)
[2020-06-12] MEDS: Amlodipine 5 MG TAB PO SCH ×2 (05:54→20:52)
[2020-06-12] MEDS: Lidocaine 5% Patch TD SCH (08:42)
[2020-06-12] MEDS: Floranex Packet PO SCH (08:43)
[2020-06-12] MEDS: Pramipexole Di-HCl 0.25 MG TAB PO SCH ×2 (08:43→20:50)
[2020-06-12] MEDS: Multivitamin W/ Minerals 1 TAB PO SCH (08:44)
[2020-06-12] MEDS: Carbidopa/Levodopa 25-100 mg Tablet PO SCH ×4 (08:45→20:52)
[2020-06-12] MEDS: Naproxen 500 MG TAB PO SCH ×2 (08:48→17:23)
[2020-06-12] MEDS: Cholecalciferol 1,000 UNITS (25 MCG) TAB PO SCH (08:49)
[2020-06-12] MEDS: Atorvastatin Calcium 10 MG TAB PO SCH (08:49)
[2020-06-12] MEDS: Enoxaparin Sodium 30 MG/0.3 ML SYRINGE SC SCH (08:51)
[2020-06-12] MEDS: Gabapentin 300 MG CAP PO SCH ×2 (08:52→20:51)
[2020-06-12] MEDS: Acetaminophen 325 MG TAB PO PRN (14:06)
[2020-06-12] MEDS: Naproxen 500 MG TAB PO PRN (17:22)
[2020-06-12] MEDS: Mirtazapine 15 MG TAB PO SCH (20:52)
[2020-06-12] MEDS: LIDOCAINE Patch Removal TOP SCH (20:53)
[2020-06-13] MEDS: Amlodipine 5 MG TAB PO SCH ×2 (06:10→20:46)
[2020-06-13] MEDS: Gabapentin 300 MG CAP PO SCH ×2 (08:54→20:47)
[2020-06-13] MEDS: Carbidopa/Levodopa 25-100 mg Tablet PO SCH ×4 (08:56→20:48)
[2020-06-13] MEDS: Naproxen 500 MG TAB PO SCH ×2 (08:56→17:15)
[2020-06-13] MEDS: Pramipexole Di-HCl 0.25 MG TAB PO SCH ×2 (08:57→20:48)
[2020-06-13] MEDS: Enoxaparin Sodium 30 MG/0.3 ML SYRINGE SC SCH (08:57)
[2020-06-13] MEDS: Cholecalciferol 1,000 UNITS (25 MCG) TAB PO SCH (08:57)
[2020-06-13] MEDS: Atorvastatin Calcium 10 MG TAB PO SCH (08:57)
[2020-06-13] MEDS: Floranex Packet PO SCH (08:57)
[2020-06-13] MEDS: Lidocaine 5% Patch TD SCH (08:58)
[2020-06-13] MEDS: Multivitamin W/ Minerals 1 TAB PO SCH (08:58)
[2020-06-13] MEDS: Acetaminophen 325 MG TAB PO PRN (15:27)
[2020-06-13] MEDS: Mirtazapine 15 MG TAB PO SCH (20:48)
[2020-06-13] MEDS: LIDOCAINE Patch Removal TOP SCH (21:00)
[2020-06-14] MEDS: Amlodipine 5 MG TAB PO SCH ×2 (05:20→20:11)
[2020-06-14] MEDS: Acetaminophen 325 MG TAB PO PRN ×3 (05:24→20:33)
[2020-06-14] MEDS: Lidocaine 5% Patch TD SCH (09:28)
[2020-06-14] MEDS: Gabapentin 300 MG CAP PO SCH ×2 (09:29→20:12)
[2020-06-14] MEDS: Floranex Packet PO SCH (09:29)
[2020-06-14] MEDS: Pramipexole Di-HCl 0.25 MG TAB PO SCH ×2 (09:30→20:11)
[2020-06-14] MEDS: Enoxaparin Sodium 30 MG/0.3 ML SYRINGE SC SCH (09:30)
[2020-06-14] MEDS: Multivitamin W/ Minerals 1 TAB PO SCH (09:30)
[2020-06-14] MEDS: Naproxen 500 MG TAB PO SCH ×2 (09:31→17:15)
[2020-06-14] MEDS: Atorvastatin Calcium 10 MG TAB PO SCH (09:31)
[2020-06-14] MEDS: Carbidopa/Levodopa 25-100 mg Tablet PO SCH ×4 (09:32→20:12)
[2020-06-14] MEDS: Cholecalciferol 1,000 UNITS (25 MCG) TAB PO SCH (09:33)
[2020-06-14] MEDS: Mirtazapine 15 MG TAB PO SCH (20:12)
[2020-06-14] MEDS: LIDOCAINE Patch Removal TOP SCH (20:13)
[2020-06-15] MEDS: Amlodipine 5 MG TAB PO SCH ×2 (05:16→20:51)
[2020-06-15] MEDS: Naproxen 500 MG TAB PO SCH ×2 (08:28→18:11)
[2020-06-15] MEDS: Floranex Packet PO SCH (08:30)
[2020-06-15] MEDS: Atorvastatin Calcium 10 MG TAB PO SCH (08:30)
[2020-06-15] MEDS: Carbidopa/Levodopa 25-100 mg Tablet PO SCH ×4 (08:30→20:51)
[2020-06-15] MEDS: Enoxaparin Sodium 30 MG/0.3 ML SYRINGE SC SCH (08:31)
[2020-06-15] MEDS: Cholecalciferol 1,000 UNITS (25 MCG) TAB PO SCH (08:31)
[2020-06-15] MEDS: Gabapentin 300 MG CAP PO SCH ×2 (08:31→20:52)
[2020-06-15] MEDS: Pramipexole Di-HCl 0.25 MG TAB PO SCH ×2 (08:32→20:50)
[2020-06-15] MEDS: Lidocaine 5% Patch TD SCH (08:32)
[2020-06-15] MEDS: Multivitamin W/ Minerals 1 TAB PO SCH (08:32)
[2020-06-15] MEDS: Mirtazapine 15 MG TAB PO SCH (20:51)
[2020-06-15] MEDS: LIDOCAINE Patch Removal TOP SCH (20:56)
[2020-06-16] MEDS: Amlodipine 5 MG TAB PO SCH ×2 (05:43→21:09)
[2020-06-16] MEDS: Naproxen 500 MG TAB PO SCH ×2 (08:31→16:53)
[2020-06-16] MEDS: Atorvastatin Calcium 10 MG TAB PO SCH (08:32)
[2020-06-16] MEDS: Floranex Packet PO SCH (08:32)
[2020-06-16] MEDS: Carbidopa/Levodopa 25-100 mg Tablet PO SCH ×4 (08:32→21:08)
[2020-06-16] MEDS: Cholecalciferol 1,000 UNITS (25 MCG) TAB PO SCH (08:33)
[2020-06-16] MEDS: Enoxaparin Sodium 30 MG/0.3 ML SYRINGE SC SCH (08:33)
[2020-06-16] MEDS: Multivitamin W/ Minerals 1 TAB PO SCH (08:34)
[2020-06-16] MEDS: Gabapentin 300 MG CAP PO SCH ×2 (08:34→21:08)
[2020-06-16] MEDS: Pramipexole Di-HCl 0.25 MG TAB PO SCH ×2 (08:34→21:07)
[2020-06-16] MEDS: Lidocaine 5% Patch TD SCH (08:34)
[2020-06-16] MEDS ORDERED: Iopamidol 370 76% 100 ML VIAL ONE (09:00)
[2020-06-16] MEDS: Mirtazapine 15 MG TAB PO SCH (21:08)
[2020-06-16] MEDS: LIDOCAINE Patch Removal TOP SCH (21:15)
[2020-06-17] MEDS: Amlodipine 5 MG TAB PO SCH ×2 (05:03→20:31)
[2020-06-17] MEDS: Lidocaine 5% Patch TD SCH (08:08)
[2020-06-17] MEDS: Pramipexole Di-HCl 0.25 MG TAB PO SCH ×2 (08:09→20:30)
[2020-06-17] MEDS: Gabapentin 300 MG CAP PO SCH ×2 (08:09→20:31)
[2020-06-17] MEDS: Cholecalciferol 1,000 UNITS (25 MCG) TAB PO SCH (08:09)
[2020-06-17] MEDS: Carbidopa/Levodopa 25-100 mg Tablet PO SCH ×4 (08:10→20:31)
[2020-06-17] MEDS: Naproxen 500 MG TAB PO SCH ×2 (08:11→16:39)
[2020-06-17] MEDS: Atorvastatin Calcium 10 MG TAB PO SCH (08:11)
[2020-06-17] MEDS: Enoxaparin Sodium 30 MG/0.3 ML SYRINGE SC SCH (08:12)
[2020-06-17] MEDS: Multivitamin W/ Minerals 1 TAB PO SCH (08:12)
[2020-06-17] MEDS: Floranex Packet PO SCH (08:12)
[2020-06-17] MEDS: Acetaminophen 325 MG TAB PO PRN (14:54)
[2020-06-17] MEDS: Mirtazapine 15 MG TAB PO SCH (20:31)
[2020-06-17] MEDS: LIDOCAINE Patch Removal TOP SCH (20:32)
[2020-06-18] MEDS: Amlodipine 5 MG TAB PO SCH ×2 (05:46→21:05)
[2020-06-18] MEDS: Acetaminophen 325 MG TAB PO PRN (05:47)
[2020-06-18] MEDS: Cholecalciferol 1,000 UNITS (25 MCG) TAB PO SCH (08:16)
[2020-06-18] MEDS: Multivitamin W/ Minerals 1 TAB PO SCH (08:16)
[2020-06-18] MEDS: Atorvastatin Calcium 10 MG TAB PO SCH (08:16)
[2020-06-18] MEDS: Pramipexole Di-HCl 0.25 MG TAB PO SCH ×2 (08:16→21:06)
[2020-06-18] MEDS: Naproxen 500 MG TAB PO SCH ×2 (08:17→17:51)
[2020-06-18] MEDS: Carbidopa/Levodopa 25-100 mg Tablet PO SCH ×4 (08:17→21:06)
[2020-06-18] MEDS: Enoxaparin Sodium 30 MG/0.3 ML SYRINGE SC SCH (08:19)
[2020-06-18] MEDS: Gabapentin 300 MG CAP PO SCH ×2 (08:19→21:06)
[2020-06-18] MEDS: Floranex Packet PO SCH (08:20)
[2020-06-18] MEDS: Lidocaine 5% Patch TD SCH (08:20)
[2020-06-18 17:38] LABS: #Basophils 0.1 thou/uL (0.0-0.2); #Eosinphils 0.1 thou/uL (0.0-0.7); #Monocytes 0.3 thou/uL (0.11-0.59); #Neutrophils 3.8 thou/uL (1.40-6.50); %Basophils 1.2 % (0.0-1.0); %Eosinophils 1.5 % (0.0-10.0); %Lymphocytes 18.5 % (21.0-51.0); %Neutrophils 72.7 % (42.0-75.0); Hemoglobin 11.4 g/dL (12.0-16.0); Mean Corpuscular HGB CONC 30.1 g/dL (32.0-36.0); Mean Corpuscular Hemoglobin 29.9 pg (27.0-31.0); Mean Corpuscular Volume 99.4 fL (78.0-98.0); Mean Platelet Volume 6.7 fL (7.4-10.4); Platelet Count 248 thou/uL (130-400); RBC Distribution Width 13.6 % (11.5-14.5); Red Blood Cell (RBC) Count 3.82 mill/uL (4.20-5.40); White Blood Cell (WBC) Count 5.2 thou/uL (4.8-10.8)
[2020-06-18 17:53] LABS: ALT (SGPT) 8 U/L (8-55); AST (SGOT) 19 U/L (5-34); Albumin 3.4 g/dL (3.4-4.8); Alkaline Phosphatase 129 U/L (40-110); Anion Gap 13 mmol/L (10-20); BUN (Urea Nitrogen) 22 mg/dL (9.8-20.1); Bilirubin, Total 0.5 mg/dL (0.2-1.2); Calc. Creatinine Clearance 44 mL/min (70-130); Calcium 8.5 mg/dL (7.8-10.44); Carbon Dioxide 27 mmol/L (23-31); Chloride 101 mmol/L (98-107); Globulin 2.2 g/dL (2.4-3.5); Glucose 113 mg/dL (83-110); Potassium 3.9 mmol/L (3.5-5.1); Protein, Total 5.6 g/dL (5.8-8.1); Sodium 137 mmol/L (136-145)
[2020-06-18] MEDS: Mirtazapine 15 MG TAB PO SCH (21:06)
[2020-06-18] MEDS: LIDOCAINE Patch Removal TOP SCH (21:07)
[2020-06-19] MEDS: Naproxen 500 MG TAB PO SCH ×2 (08:45→16:22)
[2020-06-19] MEDS: Atorvastatin Calcium 10 MG TAB PO SCH (08:46)
[2020-06-19] MEDS: Carbidopa/Levodopa 25-100 mg Tablet PO SCH ×4 (08:46→20:35)
[2020-06-19] MEDS: Enoxaparin Sodium 30 MG/0.3 ML SYRINGE SC SCH (08:46)
[2020-06-19] MEDS: Floranex Packet PO SCH (08:46)
[2020-06-19] MEDS: Cholecalciferol 1,000 UNITS (25 MCG) TAB PO SCH (08:46)
[2020-06-19] MEDS: Lidocaine 5% Patch TD SCH (08:47)
[2020-06-19] MEDS: Gabapentin 300 MG CAP PO SCH (08:47)
[2020-06-19] MEDS: Pramipexole Di-HCl 0.25 MG TAB PO SCH ×2 (08:47→20:32)
[2020-06-19] MEDS: Multivitamin W/ Minerals 1 TAB PO SCH (08:47)
[2020-06-19] MEDS: Gabapentin 100 MG CAP PO SCH (20:32)
[2020-06-19] MEDS: Amlodipine 5 MG TAB PO SCH (20:34)
[2020-06-19] MEDS: Mirtazapine 15 MG TAB PO SCH (20:34)
[2020-06-19] MEDS: LIDOCAINE Patch Removal TOP SCH (20:35)
[2020-06-20] MEDS: Naproxen 500 MG TAB PO SCH ×2 (08:15→17:53)
[2020-06-20] MEDS: Floranex Packet PO SCH (08:17)
[2020-06-20] MEDS: Cholecalciferol 1,000 UNITS (25 MCG) TAB PO SCH (08:18)
[2020-06-20] MEDS: Atorvastatin Calcium 10 MG TAB PO SCH (08:18)
[2020-06-20] MEDS: Carbidopa/Levodopa 25-100 mg Tablet PO SCH ×4 (08:18→20:18)
[2020-06-20] MEDS: Enoxaparin Sodium 30 MG/0.3 ML SYRINGE SC SCH (08:18)
[2020-06-20] MEDS: Multivitamin W/ Minerals 1 TAB PO SCH (08:19)
[2020-06-20] MEDS: Gabapentin 100 MG CAP PO SCH ×2 (08:19→20:19)
[2020-06-20] MEDS: Lidocaine 5% Patch TD SCH (08:19)
[2020-06-20] MEDS: Pramipexole Di-HCl 0.25 MG TAB PO SCH ×2 (08:20→20:18)
[2020-06-20] MEDS: Amlodipine 5 MG TAB PO SCH (20:18)
[2020-06-20] MEDS: Mirtazapine 15 MG TAB PO SCH (20:19)
[2020-06-20] MEDS: LIDOCAINE Patch Removal TOP SCH (20:21)
[2020-06-21 07:35] VITALS: BP 135/59; TEMP 98.2
[2020-06-21] MEDS: Enoxaparin Sodium 30 MG/0.3 ML SYRINGE SC SCH (08:36)
[2020-06-21] MEDS: Lidocaine 5% Patch TD SCH (08:36)
[2020-06-21] MEDS: Naproxen 500 MG TAB PO SCH (08:37)
[2020-06-21] MEDS: Multivitamin W/ Minerals 1 TAB PO SCH (08:37)
[2020-06-21] MEDS: Cholecalciferol 1,000 UNITS (25 MCG) TAB PO SCH (08:37)
[2020-06-21] MEDS: Pramipexole Di-HCl 0.25 MG TAB PO SCH (08:37)
[2020-06-21] MEDS: Floranex Packet PO SCH (08:37)
[2020-06-21] MEDS: Atorvastatin Calcium 10 MG TAB PO SCH (08:37)
[2020-06-21] MEDS: Carbidopa/Levodopa 25-100 mg Tablet PO SCH ×2 (08:38)
[2020-06-21] MEDS: Gabapentin 100 MG CAP PO SCH (08:38)
== END 2020-06-21 13:16 | DRG 543 ==
LOC: NAV ACUTE 16:21
PROVIDERS: ADMIT Internal Medicine; ATTEND Internal Medicine
DX: M84.48XA Pathological fracture, other site, initial encounter for fracture (principal); N39.0 Urinary tract infection, site not specified; M51.06 Intervertebral disc disorders with myelopathy, lumbar region; E87.1 Hypo-osmolality and hyponatremia; G20 Parkinson's disease; I10 Essential (primary) hypertension; Z85.048 Personal history of other malignant neoplasm of rectum, rectosigmoid junction, and anus; M43.06 Spondylolysis, lumbar region; E78.5 Hyperlipidemia, unspecified; Z86.16 Personal history of COVID-19; Z92.3 Personal history of irradiation; Z90.710 Acquired absence of both cervix and uterus; Z88.0 Allergy status to penicillin; Z88.5 Allergy status to narcotic agent; M51.16 Intervertebral disc disorders with radiculopathy, lumbar region; E87.6 Hypokalemia; M84.38XD Stress fracture, other site, subsequent encounter for fracture with routine healing; G47.00 Insomnia, unspecified; F41.9 Anxiety disorder, unspecified; R41.0 Disorientation, unspecified; R63.0 Anorexia; I95.1 Orthostatic hypotension; Z68.20 Body mass index [BMI] 20.0-20.9, adult
CPT/HCPCS: 36415; 74160; 80048; 80053; 81001; 85025; J1650; Q9967